=== PATIENT | female | born 1945 | race Caucasian/White ===

== ENCOUNTER 2017-01-01 18:19 | Emergency (ER) | payer MEDICARE, MEDICAID ==
[2017-01-01 18:52] VITALS: TEMP 97.5
--- NOTE | 2017-01-01 18:57 | CT ---
PROCEDURE: Head CLINICAL HISTORY: 71 years Female fell and hit posterior scalp in tub COMPARISON: None. TECHNIQUE: Contiguous axial images obtained through the brain without IV contrast. FINDINGS: The images are slightly suboptimal from motion. The ventricles and sulci are prominent consistent with atrophic changes. Microvascular ischemic changes. No mass lesions. No acute hemorrhage. Atherosclerotic calcifications. No fluid or significant mucosal thickening in the visualized paranasal sinuses. No depressed calvarial fractures. IMPRESSION: No acute intracranial abnormality is identified. Electronically signed by: Boo Cain MD 01/01/2017 6:56 PM [employer]
--- NOTE | 2017-01-01 19:14 | ED.PDOC ---
History of Present Illness - General Chief Complaint: Trauma Stated Complaint: fell against bathtub Time Seen by Provider: 01/01/17 18:23 Source: patient, RN notes reviewed, family Exam Limitations: no limitations Additional Information: Pt brought to ER by EMS. She reportedly fell from seated position. She was sitting on the edge of her tub and fell backwards hitting her posterior scalp. No reported LOC. Pt has baseline dementia. She is in no distress. - History of Present Illness Timing/Duration: 1/2 hour - prior to arrival Improving Factors: rest Worsening Factors: movement Associated Symptoms: headaches - mild Allergies/Adverse Reactions: Allergies Tetanus Toxoids Allergy (Severe, Verified 08/04/16 14:28) Anaphylaxis Hydromorphone [From Dilaudid] Allergy (Verified 08/04/16 14:28) Meperidine [From Demerol HCl] Allergy (Verified 08/04/16 14:28) Penicillins Allergy (Verified 08/04/16 14:28) Home Medications: Ambulatory Orders Amitriptyline HCl [Elavil] 25 mg PO BEDTIME 08/04/16 Cetirizine HCl 10 mg PO DAILY 08/04/16 Cholecalciferol [Vitamin D3] 5,000 unit PO DAILY 08/04/16 Escitalopram [Lexapro] 20 mg PO DAILY 08/04/16 Famotidine 20 mg PO BID 08/04/16 Gabapentin 300 mg PO TID 08/04/16 Levothyroxine Sodium 88 mcg PO DAILY 08/04/16 Linaclotide [Linzess] 290 mcg PO DAILY 08/04/16 Lisinopril 40 mg PO DAILY 08/04/16 Naproxen [Naprosyn] 500 mg PO BID 08/04/16 Ramelteon [Rozerem] 8 mg PO BEDTIME 08/04/16 Solifenacin Succinate [Vesicare] 10 mg PO DAILY 08/04/16 Tramadol HCl 50 mg PO BID 08/04/16 tiZANidine [Zanaflex] 4 mg PO TID PRN #30 tab 08/04/16 Review of Systems - Review of Systems Constitutional: States: no symptoms reported EENTM: States: no symptoms reported Respiratory: States: no symptoms reported Cardiology: States: no symptoms reported Gastrointestinal/Abdominal: States: no symptoms reported Genitourinary: States: no symptoms reported Musculoskeletal: States: no symptoms reported Skin: States: no symptoms reported Neurological: States: headache - mild Endocrine: States: no symptoms reported Hematologic/Lymphatic: States: no symptoms reported Unable to Obtain Due To: dementia - per report, but patient is conversive and able to cooperate with history and exam. Also, at bedside and reports patient is at her baseline. Past Medical History (General) - Patient Medical History Hx Seizures: No Hx Stroke: No Hx Dementia: Yes Hx Asthma: No Hx of COPD: Yes Hx Cardiac Disorders: No Hx Congestive Heart Failure: No Hx Pacemaker: No Hx Hypertension: Yes Hx Thyroid Disease: No Hx Diabetes: No Hx Gastroesophageal Reflux: Yes Hx Cancer: Yes - breast Hx of HIV: No Hx Hepatitis C: No Hx MRSA: No - Vaccination History Hx Tetanus, Diphtheria Vaccination: No Hx Influenza Vaccination: Yes Hx Pneumococcal Vaccination: Yes - Social History Hx Tobacco Use: Yes Hx Alcohol Use: No Hx Substance Use: No Hx Substance Use Treatment: No Hx Depression: No Hx Physical Abuse: No Hx Emotional Abuse: No - Female History Patient : No Family Medical History - Family History Mother Family History: Unknown Living Status: Hx Family Hypertension: Yes Hx Family;Other: dementia Physical Exam - Physical Exam General Appearance: Comfortable, No apparent distress Eye Exam: bilateral normal Ears, Nose, Throat: hearing grossly normal Neck: non-tender, full range of motion, supple Respiratory: no respiratory distress Cardiovascular/Chest: normal peripheral pulses, regular rate, rhythm Gastrointestinal/Abdominal: non tender, soft Extremity: normal range of motion, non-tender 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 Pt stable for discharge home with strict return precautions. Will recommend OTC Tylenol as needed for headache and have patient f/u if condition worsens. - EKG/XRAY/CT CT: Head non-contrast - no evidence of acute intracranial bleed CT Ordered: Yes CT Interpretation Call Back: Yes Departure - Departure Clinical Impression: Blunt head trauma Qualifiers: Encounter type: initial encounter Qualifier Code: (S09.8XXA) Other specified injuries of head, initial encounter Contusion of scalp Qualifiers: Encounter type: initial encounter Qualifier Code: (S00.03XA) Contusion of scalp , initial encounter Headache Qualifiers: Headache type: post-traumatic Headache chronicity pattern: acute headache Intractability: intractable Qualifier Code: (G44.311) Acute post-traumatic headache, intractable Time of Disposition: 19:45 Disposition: Discharge to Home or Self Care Departure Forms: ED Discharge - Pt. Copy, Patient Portal Self Enrollment Home Medications: Ambulatory Orders Amitriptyline HCl [Elavil] 25 mg PO BEDTIME 08/04/16 Cetirizine HCl 10 mg PO DAILY 08/04/16 Cholecalciferol [Vitamin D3] 5,000 unit PO DAILY 08/04/16 Escitalopram [Lexapro] 20 mg PO DAILY 08/04/16 Famotidine 20 mg PO BID 08/04/16 Gabapentin 300 mg PO TID 08/04/16 Levothyroxine Sodium 88 mcg PO DAILY 08/04/16 Linaclotide [Linzess] 290 mcg PO DAILY 08/04/16 Lisinopril 40 mg PO DAILY 08/04/16 Naproxen [Naprosyn] 500 mg PO BID 08/04/16 Ramelteon [Rozerem] 8 mg PO BEDTIME 08/04/16 Solifenacin Succinate [Vesicare] 10 mg PO DAILY 08/04/16 Tramadol HCl 50 mg PO BID 08/04/16 tiZANidine [Zanaflex] 4 mg PO TID PRN #30 tab 08/04/16 Additional Instructions: Ok to use over the counter Tylenol as needed for headache (follow label instructions). Return to ER if condition worsens.
[2017-01-01 19:53] VITALS: O2SAT 98
[2017-01-01 19:55] VITALS: BP 126/71
== END 2017-01-01 19:55 | disposition home or self-care (01) ==
LOC: ER 18:19
DX: S00.03XA Contusion of scalp, initial encounter (principal); S09.8XXA Other specified injuries of head, initial encounter; F03.90 Unspecified dementia, unspecified severity, without behavioral disturbance, psychotic disturbance, mood disturbance, and anxiety; G44.311 Acute post-traumatic headache, intractable; J44.9 Chronic obstructive pulmonary disease, unspecified; I10 Essential (primary) hypertension; Z87.891 Personal history of nicotine dependence; K21.9 Gastro-esophageal reflux disease without esophagitis; Z85.3 Personal history of malignant neoplasm of breast; Z88.7 Allergy status to serum and vaccine; Z88.0 Allergy status to penicillin; Z79.899 Other long term (current) drug therapy; Z88.6 Allergy status to analgesic agent; W18.2XXA Fall in (into) shower or empty bathtub, initial encounter; Y92.002 Bathroom of unspecified non-institutional (private) residence as the place of occurrence of the external cause

== ENCOUNTER → 2017-03-30 | Outpatient (CLI) | payer MEDICARE, MEDICAID ==
--- NOTE | 2017-04-01 10:58 | RAD ---
EXAM DESCRIPTION: Chest,2 Views CLINICAL HISTORY: 71 years Female, EXACERBATION OF ASTHMA IMPRESSION: 2 views of the chest reveal clear lungs no pleural effusion or pneumothorax. Heart size is unremarkable. Electronically signed by: Juliocesar Encarnacion MD 04/01/2017 10:58 AM CDT
== END | disposition home or self-care (01) ==
LOC: YCFC.O 13:48
PROVIDERS: ATTEND Nurse Practitioner Family
DX: J45.901 Unspecified asthma with (acute) exacerbation (principal)

== ENCOUNTER → 2017-06-14 | Outpatient (CLI) | payer MEDICARE, MEDICAID ==
--- NOTE | 2017-06-15 15:54 | RAD ---
EXAM DESCRIPTION: Chest,2 Views CLINICAL HISTORY: EXACERBATION OF ASTHMA COMPARISON: March 30, 2017 TECHNIQUE: PA/lateral FINDINGS: The lungs are normal in volume without hyperexpansion with moderate kyphosis and degenerative changes noted in the dorsal spine with cardiac size upper limits of normal. Very little change from previous study is noted with no dense consolidation or pleural effusion or severe atelectasis noted. The aorta is moderately tortuous. IMPRESSION: No acute cardiopulmonary changes noted. Electronically signed by: Wagner Boykin MD 06/15/2017 3:52 PM CDT
== END ==
LOC: YCFC.O 16:40
PROVIDERS: ATTEND Nurse Practitioner Family
DX: J45.901 Unspecified asthma with (acute) exacerbation (principal)

== ENCOUNTER → 2017-08-10 | Outpatient (CLI) | payer MEDICARE, MEDICAID ==
--- NOTE | 2017-08-12 10:36 | MAM ---
EXAM DESCRIPTION: 3D Screening right : Digital Mammography. CLINICAL HISTORY: 71 years Female SCREENING . Breast cancer 2006 with mastectomy left. Mother with breast cancer. Postmenopausal. Right breast biopsy.. COMPARISON: Right breast 2-D digital mammography 08/09/2016 and 07/23/2015.. Report from prior examination also reviewed. TECHNIQUE: Right CC and MLO projection full-field images, 3-D tomosynthesis digital mammographic technique. Also right synthesized CC/ MLO full-field images. CAD not utilized. FINDINGS: The breast parenchymal density pattern is: Scattered areas of fibroglandular density. No skin thickening or nipple retraction small solitary microcalcifications. No intramammary lymph nodes. focal asymmetry , and no suspicious microcalcifications bilaterally. Stable mammograms compared to prior studies, taking into account differences in mammographic technique. IMPRESSION: BI-RADS CATEGORY: 2 - BENIGN FINDINGS. FOLLOW UP: Routine digital bilateral screening, one year interval from July 2017. Written communication explaining the IMPRESSION and follow-up, will be mailed to the patient and referring health care provider. According to the [employer], yearly mammograms are recommended starting at age 40 and continuing as long as a woman is in good health. Any breast change noted on a breast self-exam should be reported promptly to the patient's healthcare provider. Breast MRI is recommended for women with an approximately 20-25% or greater lifetime risk of breast cancer, including women with a strong family history of breast or ovarian cancer and women who have been treated for Hodgkin's disease. A negative mammographic report should not delay tissue diagnosis in patients with significant clinical history or physical findings. Extremely dense breast tissue limits the sensitivity of digital mammography. Electronically signed by: Markos Lopez MD 08/12/2017 10:35 AM CDT
== END ==
LOC: MAMMO 15:08
PROVIDERS: ATTEND Nurse Practitioner Family
DX: Z12.31 Encounter for screening mammogram for malignant neoplasm of breast (principal)
CPT/HCPCS: 77063; G0202

== ENCOUNTER 2018-02-08 20:20 | Emergency (ER) | payer MEDICARE, MEDICAID ==
[2018-02-08] MEDS: NITROGLYCERIN 0.4 MG 25 EA TAB SL ONE (20:25)
--- NOTE | 2018-02-08 20:52 | ED.PDOC ---
History of Present Illness - General Chief Complaint: Chest Pain/IA Stated Complaint: chest pain Source: patient, family - History of Present Illness Initial Comments: THE PATIENT IS A POOR HISTORIAN; THE DAUGHTER AT THE BEDSIDE DOES MOST OF THE TALKING. EVIDENTLY SHE STARTED WITH LEFT SIDED CHEST PAIN YESTERDAY AFTERNOON, A SHARP PAIN, INTERMITTENT THAT RADIATES TO THE LEFT SHOULDER. AT TIMES THE PAIN IS ASSOCIATED WITH SOB. TODAY SHE WAS AT [employer] AND SHE STARTED COMPLAININGS OF THE LEFT SIDED PAIN AGAIN 05/02 ASSOCIATED WITH SOB AND RADIATION TO THE LEFT SHOULDER. SHE RECENTLY RECEIVED SHOTS TO BOTH SHOULDER FOR DJD. SHE HAS A HX OF HTN AND COPD. SHE IS AN EX SMOKER AND HAS NO HX OF CAD. THE PATIENT DISCLOSED THAT IN 2011 SHE UNDERWENT A HEART CATHETERIZATION BY DR. BRUSH AND THERE WAS NO CAD. Timing/Duration: 24 hours, getting worse, intermittent Severity/Quality: severe, sharp Location: substernal Chest Pain Radiation: arms, shoulders Activities at Onset: none Prior Chest Pain/Cardiac Workup: no prior chest pain, no prior cardiac workup Improving Factors: nothing Worsening Factors: nothing Nitro Today/Relief: no nitro taken today - BUT [facility] GAVE HER A PILL OF MORPHINE SULPHATE AND ALEVIATED HER PAIN. Associated Symptoms: diaphoresis, shortness of breath Allergies/Adverse Reactions: Allergies Tetanus Toxoids Allergy (Severe, Verified 08/04/16 14:28) Anaphylaxis Aspirin Allergy (Verified 02/08/18 20:33) Hydromorphone [From Dilaudid] Allergy (Verified 08/04/16 14:28) Meperidine [From Demerol HCl] Allergy (Verified 08/04/16 14:28) Penicillins Allergy (Verified 08/04/16 14:28) Home Medications: Ambulatory Orders Cetirizine HCl 10 mg PO DAILY 08/04/16 Cholecalciferol [Vitamin D3] 5,000 unit PO DAILY 08/04/16 Escitalopram [Lexapro] 20 mg PO DAILY 08/04/16 Famotidine 20 mg PO BID 08/04/16 Gabapentin 300 mg PO TID 08/04/16 Levothyroxine Sodium 88 mcg PO DAILY 08/04/16 Linaclotide [Linzess] 290 mcg PO DUSTIN-OTH-DAY 08/04/16 Lisinopril 40 mg PO DAILY 08/04/16 Naproxen [Naprosyn] 500 mg PO BID 08/04/16 Tramadol HCl 50 mg PO BID 08/04/16 ALPRAZolam [Xanax] 0.5 mg PO Q8HRS PRN MDD 1mg 02/08/18 Albuterol Inhaler [Ventolin Hfa Inhaler] 1 puff INH PRN 02/08/18 Budesonide-Formoterol Fumarate [Symbicort] 1 aer IN BID 02/08/18 Cyclobenzaprine HCl [Flexeril] 10 mg PO BEDTIME 02/08/18 Fluticasone Propionate (Nasal) [Flonase] 50 mcg NA DAILY 02/08/18 Guaifenesin [Mucinex] 600 mg PO DAILY 02/08/18 HYDROcodone 7.5MG/APAP 325MG [[place] 7.5/325] 1 tab PO DAILY 02/08/18 Morphine 20Mg/ml Ud [Roxanol] 20 mg PO PRN 02/08/18 Trazodone HCl 100 mg PO BEDTIME 02/08/18 Review of Systems - Review of Systems Constitutional: States: no symptoms reported EENTM: States: no symptoms reported Respiratory: States: short of breath Cardiology: States: see HPI, chest pain Gastrointestinal/Abdominal: States: nausea Genitourinary: States: no symptoms reported Musculoskeletal: States: other - BILATERAL SHOULDER PAIN, EVEN BEFORE THE PAIN STARTED. Skin: States: no symptoms reported Neurological: States: no symptoms reported Endocrine: States: no symptoms reported Hematologic/Lymphatic: States: no symptoms reported All other Systems: Reviewed and Negative, No Change from Baseline Past Medical History (General) - Patient Medical History Hx Seizures: No Hx Stroke: No Hx Dementia: Yes Hx Asthma: No Hx of COPD: Yes Hx Cardiac Disorders: Yes - heart murmur Hx Congestive Heart Failure: No Hx Pacemaker: No Hx Hypertension: Yes Hx Thyroid Disease: Yes Hx Diabetes: No Hx Gastroesophageal Reflux: Yes Hx Cancer: Yes - Left breast Hx of HIV: No Hx Hepatitis C: No Hx MRSA: No Surgical History: cancer surgery, other - Vaccination History Hx Tetanus, Diphtheria Vaccination: No Hx Influenza Vaccination: Yes Hx Pneumococcal Vaccination: Yes - Social History Hx Tobacco Use: Yes Hx Alcohol Use: No Hx Substance Use: No Hx Substance Use Treatment: No Hx Depression: No Hx Physical Abuse: No Hx Emotional Abuse: No - Female History Patient : No Family Medical History - Family History Mother Family History: Unknown Living Status: Hx Family Hypertension: Yes Hx Family;Other: dementia Physical Exam - Physical Exam General Appearance: Alert, Anxious, Well Developed, Well Hydrated Eyes, Ears, Nose, Throat Exam: PERRL/EOMI, normal ENT inspection, TMs normal, pharynx normal Neck: non-tender, full range of motion, supple, normal inspection Respiratory: chest non-tender, lungs clear, normal breath sounds, no respiratory distress, no accessory muscle use Cardiovascular/Chest: normal peripheral pulses, regular rate, rhythm, no edema, no gallop, no JVD, systolic murmur - GRADE 4/6 ON THE LEFT STERNAL BORDER- RADIATED TO THE NECK-SUGGESTS AORTIC STENOSIS Peripheral Pulses: radial,right: 2+, radial,left: 2+ Gastrointestinal/Abdominal: normal bowel sounds, non tender, soft, no organomegaly, no pulsatile mass Rectal Exam: deferred Extremity: normal range of motion 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 I HAVE CALLED DR. Jesus MARIE AND DR. Bj MARIE AND WILL BE TRANSFERING THE PATIENT FOR CDU OBSERVATION AND CARDIOLOGY CONSULT IN THE AM. - EKG/XRAY/CT EKG: Sinus Comments: HR OF 71, OK 178, QRS 82, QTC 397, AXES 15-SINUS RHYTHM, NO INJURY PATTERN Departure - Departure Clinical Impression: Chest pain Time of Disposition: 22:38 Disposition: Transfer to Hospital Condition: Fair Referrals: Rita Avalos NP [Primary Care Provider] - 1-2 Weeks Home Medications: Ambulatory Orders Cetirizine HCl 10 mg PO DAILY 08/04/16 Cholecalciferol [Vitamin D3] 5,000 unit PO DAILY 08/04/16 Escitalopram [Lexapro] 20 mg PO DAILY 08/04/16 Famotidine 20 mg PO BID 08/04/16 Gabapentin 300 mg PO TID 08/04/16 Levothyroxine Sodium 88 mcg PO DAILY 08/04/16 Linaclotide [Linzess] 290 mcg PO DUSTIN-OTH-DAY 08/04/16 Lisinopril 40 mg PO DAILY 08/04/16 Naproxen [Naprosyn] 500 mg PO BID 08/04/16 Tramadol HCl 50 mg PO BID 08/04/16 ALPRAZolam [Xanax] 0.5 mg PO Q8HRS PRN MDD 1mg 02/08/18 Albuterol Inhaler [Ventolin Hfa Inhaler] 1 puff INH PRN 02/08/18 Budesonide-Formoterol Fumarate [Symbicort] 1 aer IN BID 02/08/18 Cyclobenzaprine HCl [Flexeril] 10 mg PO BEDTIME 02/08/18 Fluticasone Propionate (Nasal) [Flonase] 50 mcg NA DAILY 02/08/18 Guaifenesin [Mucinex] 600 mg PO DAILY 02/08/18 HYDROcodone 7.5MG/APAP 325MG [[place] 7.5/325] 1 tab PO DAILY 02/08/18 Morphine 20Mg/ml Ud [Roxanol] 20 mg PO PRN 02/08/18 Trazodone HCl 100 mg PO BEDTIME 02/08/18 Transfer to Outside Facility - Transfer Information Accepting Provider:: DR. TWIN MARIE Accepting Facility: [facility] Reason for Transfer: [facility]U OBSERVATION AND CARDIOLOGY CONSULTATION
--- NOTE | 2018-02-08 21:00 | RAD ---
EXAM DESCRIPTION: Chest,1 View CLINICAL HISTORY:72 years Female, chest pain Comparison: June 14, 2017 FINDINGS: No focal lung consolidation. No pleural effusion. No pneumothorax. Cardiac and mediastinal silhouette is unremarkable. No acute osseous abnormality. Soft tissues are unremarkable. IMPRESSION: No acute findings. No focal lung consolidation. Electronically signed by: Toni Lucero MD 02/08/2018 8:58 PM CDT
[2018-02-08] MEDS: SODIUM CHLORIDE 0.9% (FLUSH) 10 ML SYG IV PRN (22:40)
[2018-02-08 22:52] VITALS: BP 133/71; TEMP 97.7
[2018-02-08 23:17] VITALS: O2SAT 97
== END 2018-02-08 23:16 | disposition short-term general hospital (02) ==
LOC: ER 20:20
DX: R07.9 Chest pain, unspecified (principal); J44.9 Chronic obstructive pulmonary disease, unspecified; M25.512 Pain in left shoulder; M25.511 Pain in right shoulder; R01.1 Cardiac murmur, unspecified; F03.90 Unspecified dementia, unspecified severity, without behavioral disturbance, psychotic disturbance, mood disturbance, and anxiety; I10 Essential (primary) hypertension; E07.9 Disorder of thyroid, unspecified; K21.9 Gastro-esophageal reflux disease without esophagitis; Z85.3 Personal history of malignant neoplasm of breast; Z87.891 Personal history of nicotine dependence; Z79.899 Other long term (current) drug therapy

== ENCOUNTER 2019-01-21 12:57 | Emergency (ER) | payer MEDICARE, MEDICAID ==
[2019-01-21 13:17] VITALS: TEMP 97.9
--- NOTE | 2019-01-21 14:02 | CT ---
PROCEDURE: CT Cervical Spine Without Intravenous Contrast CLINICAL INDICATION: The patient is 73 years old and is Female; fall probable concussion TECHNIQUE: Axial computed tomography images of the cervical spine without intravenous contrast. Sagittal and coronal reformatted images were created and reviewed. This exam was performed according to our departmental dose-optimization program, which includes automated exposure control, adjustment of the mA and/or kV according to patient size and/or use of iterative reconstruction technique. Sagittal and coronal reconstructions were also performed. COMPARISON: No relevant prior studies available. FINDINGS: VERTEBRAE: No fracture or malalignment identified in the cervical spine. There is multilevel advanced cervical spondylosis, endplate lipping and discogenic degenerative change. The lateral masses of C1 are normal with respect to C2. The dens is intact. DISCS/SPINAL CANAL/NEURAL FORAMINA: Cervical straightening is present, which may be due to degenerative changes, cervical collar placement, positioning, muscular spasm or ligamentous injury. There is degenerative zygoapophyseal and uncovertebral hypertrophy at multiple levels. No spinal canal stenosis. OTHER BONES/JOINTS: The visualized skull base is without fracture. SOFT TISSUES: No prevertebral soft tissue hematoma identified. MASTOID AIR CELLS: The inferior mastoid air cells are clear. LUNG APICES: The lung apices are clear. IMPRESSION: No fracture or malalignment identified in the cervical spine. Electronically signed by: Richard Quach MD 01/21/2019 1:59 PM CDT
--- NOTE | 2019-01-21 14:07 | CT ---
PROCEDURE: CT Head Without Intravenous Contrast CLINICAL INDICATION: The patient is 73 years old and is Female; fall probable concussion TECHNIQUE: Axial computed tomography images of the head/brain without intravenous contrast. Sagittal and coronal reformatted images were created and reviewed. This CT exam was performed using one or more of the following dose reduction techniques: automated exposure control, adjustment of the mA and/or kV according to patient size, and/or use of iterative reconstruction technique. COMPARISON: Prior brain CT from 01/02/2017 FINDINGS: BRAIN: There are mild stable confluent areas of hypodensity in the periventricular white matter, extending into the centrum semiovale and lopez radiata bilaterally, which are felt to represent the sequela of small vessel ischemic disease (microangiopathy). Early infarcts within the first 12 hours may not be visible on noncontrast CT. The cordova/white matter differentiation is intact. NO intra-or extra-axial fluid collections are seen. There is stable dilation of the temporal horn of the LEFT lateral ventricle which may be ex vacuo dilatation. There is asymmetric prominence of the LEFT sylvian fissure. Prior encephalomalacia may be accountable. No hemorrhage. MIDLINE SHIFT: There is NO midline shift. VENTRICLES: There is mild global atrophy with prominence of the ventricles, sulci and basilar cisterns. BONES/JOINTS: Unremarkable. No acute fracture. SOFT TISSUES: There is a LEFT anterior high frontal scalp contusion. VASCULATURE: Intracranial vascular calcifications are noted. SINUSES: The visualized paranasal sinuses are clear. MASTOID AIR CELLS: Unremarkable as visualized. No mastoid effusion. ORBITS: There has been bilateral cataract surgery. IMPRESSION: 1. No acute intracranial abnormality is identified. No change from two years earlier. 2. There is a LEFT anterior high frontal scalp contusion. Electronically signed by: Richard Quach MD 01/21/2019 2:04 PM CDT
--- NOTE | 2019-01-21 14:08 | RAD ---
PROCEDURE: XR Left Knee, 1 or 2 views CLINICAL INDICATION: The patient is 73 years old and is Female; pain from fall TECHNIQUE: Frontal and/or lateral views of the left knee. COMPARISON: No relevant prior studies available. FINDINGS: BONES/JOINTS: There is a LEFT total knee arthroplasty in place. There is no knee effusion. There is no fracture or dislocation identified in the LEFT knee. SOFT TISSUES: No radiopaque foreign body. No significant soft tissue swelling noted. IMPRESSION: No plain film evidence of complication status post LEFT total knee arthroplasty. Electronically signed by: Richard Quach MD 01/21/2019 2:05 PM CDT
[2019-01-21 14:09] VITALS: BP 159/73; O2SAT 92
--- NOTE | 2019-01-21 14:09 | RAD ---
PROCEDURE: XR Left Hip With Pelvis When Performed, 2 or 3 Views CLINICAL INDICATION: The patient is 73 years old and is Female; left hip pain TECHNIQUE: Two or three views of the left hip, with pelvis when performed. COMPARISON: Prior study from 08/04/2016. FINDINGS: BONES/JOINTS: There is a LEFT total knee arthroplasty with bipolar components. No fracture or dislocation identified in LEFT hip. SOFT TISSUES: Unremarkable. No radiopaque foreign body. No significant soft tissue swelling noted. IMPRESSION: No plain film evidence of complication. No change. Electronically signed by: Richard Quach MD 01/21/2019 2:06 PM CDT
--- NOTE | 2019-01-21 14:16 | ED.PDOC ---
History of Present Illness - General Chief Complaint: Trauma Stated Complaint: Fell while walking up the stairs, forehead hematom Time Seen by Provider: 01/21/19 13:08 Source: patient Exam Limitations: no limitations - History of Present Illness Initial Comments: the patient is a 73-year-old female with dementia presenting to emergency room secondary to a fall while going up the stairs to her house. She fell forward and hit her left forehead on the banister. No definite loss of consciousness but she did show some increased confusion for a little while after. It is difficult to discern what his altered mental status with her due to the dementia. Daughter is here and reports that at this time at least she is acting normal for her. She does have a large frontal scalp hematoma approximately 1-1/2 inch in diameter. She has an abrasion to the crown of her scalp that is hemostatic at this point. She reports some mild left knee and left hip pain but movement on these is essentially normal. No new lacerations there or new bruising there at this time. Very mild effusion and discomfort. Difficult to elicit further secondary to dementia. Timing/Duration: momentarily Severity: mild Improving Factors: nothing Worsening Factors: nothing Associated Symptoms: denies symptoms Allergies/Adverse Reactions: Allergies Tetanus Toxoids Allergy (Severe, Verified 08/04/16 14:28) Anaphylaxis Aspirin Allergy (Verified 02/08/18 20:33) Hydromorphone [From Dilaudid] Allergy (Verified 08/04/16 14:28) Meperidine [From Demerol HCl] Allergy (Verified 08/04/16 14:28) Penicillins Allergy (Verified 08/04/16 14:28) Home Medications: Ambulatory Orders Cetirizine HCl 10 mg PO DAILY 08/04/16 Cholecalciferol [Vitamin D3] 5,000 unit PO DAILY 08/04/16 Escitalopram [Lexapro] 20 mg PO DAILY 08/04/16 Famotidine 20 mg PO BID 08/04/16 Gabapentin 300 mg PO TID 08/04/16 Levothyroxine Sodium 88 mcg PO DAILY 08/04/16 Linaclotide [Linzess] 290 mcg PO DUSTIN-OTH-DAY 08/04/16 Lisinopril 40 mg PO DAILY 08/04/16 Naproxen [Naprosyn] 500 mg PO BID 08/04/16 Tramadol HCl 50 mg PO BID 08/04/16 ALPRAZolam [Xanax] 0.5 mg PO Q8HRS PRN MDD 1mg 02/08/18 Albuterol Inhaler [Ventolin Hfa Inhaler] 1 puff INH PRN 02/08/18 Budesonide-Formoterol Fumarate [Symbicort] 1 aer IN BID 02/08/18 Cyclobenzaprine HCl [Flexeril] 10 mg PO BEDTIME 02/08/18 Fluticasone Propionate (Nasal) [Flonase] 50 mcg NA DAILY 02/08/18 Guaifenesin [Mucinex] 600 mg PO DAILY 02/08/18 HYDROcodone 7.5MG/APAP 325MG [[place] 7.5/325] 1 tab PO DAILY 02/08/18 Morphine 20Mg/ml Ud [Roxanol] 20 mg PO PRN 02/08/18 Trazodone HCl [Trazodone Hydrochloride] 100 mg PO BEDTIME 02/08/18 Furosemide [Lasix] 20 mg PO DAILY 01/21/19 Ketorolac Tromethamine [Toradol Tabs] 10 mg PO PRN 01/21/19 Losartan Potassium 50 mg PO DAILY 01/21/19 Review of Systems - Review of Systems Constitutional: States: no symptoms reported EENTM: States: no symptoms reported Respiratory: States: no symptoms reported Cardiology: States: no symptoms reported Gastrointestinal/Abdominal: States: no symptoms reported Genitourinary: States: no symptoms reported Musculoskeletal: States: see HPI Skin: States: no symptoms reported Neurological: States: see HPI Endocrine: States: no symptoms reported All other Systems: No Change from Baseline Past Medical History (General) - Patient Medical History Hx Seizures: No Hx Stroke: No Hx Dementia: Yes Hx Asthma: No Hx of COPD: Yes Hx Cardiac Disorders: Yes - heart murmur Hx Congestive Heart Failure: No Hx Pacemaker: No Hx Hypertension: Yes Hx Thyroid Disease: Yes Hx Diabetes: No Hx Gastroesophageal Reflux: Yes Hx Cancer: Yes - Left breast Hx of HIV: No Hx Hepatitis C: No Hx MRSA: No Surgical History: other - Vaccination History Hx Tetanus, Diphtheria Vaccination: No Hx Influenza Vaccination: Yes - 2018 Hx Pneumococcal Vaccination: No - Social History Hx Tobacco Use: Yes - Quit around 1994 Hx Alcohol Use: No Hx Substance Use: No Hx Substance Use Treatment: No Hx Depression: No Hx Physical Abuse: No Hx Emotional Abuse: No - Female History Patient : No Family Medical History - Family History Mother Family History: Unknown Living Status: Hx Family Hypertension: Yes Hx Family;Other: dementia Physical Exam - Physical Exam General Appearance: Comfortable, No apparent distress, Other - initially a little bit drowsy. Eye Exam: bilateral normal - pupils are 2 mm and minimally reactive but extraocular movements are intact and the patient is obviously seeing well. Ears, Nose, Throat: hearing grossly normal, normal ENT inspection, normal pharynx Neck: full range of motion, other - mild diffuse discomfort but no real point tenderness and no step-off. Respiratory: normal breath sounds, no respiratory distress, no accessory muscle use, wheezing - very mild scattered wheezes Cardiovascular/Chest: normal peripheral pulses, no edema, other - regular rate Peripheral Pulses: radial,right: 2+, radial,left: 2+, dorsalis pedis,right: 2+, dorsalis pedis,left: 2+ Gastrointestinal/Abdominal: non tender, soft Rectal Exam: deferred Back Exam: no CVA tenderness, no vertebral tenderness Extremity: normal range of motion, no pedal edema, no calf tenderness, normal capillary refill, other - mild tenderness over the left knee but good range of motion. Mild left hip discomfort with movement but full active and passive range of motion and strength is preserved. 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 Skin Exam: normal color - left frontal scalp hematoma. Comments: Vital Signs - 24 hr 01/21/19 01/21/19 13:00 14:08 Temperature 97.9 F Pulse Rate [ 70 61 Left Radial] Respiratory 20 20 Rate Blood Pressure 153/74 159/73 [Right Arm] O2 Sat by Pulse 87 L 92 L Oximetry Progress - Results/Orders Results/Orders: the patient is a 73-year-old female presenting after a fall while going up the steps to her home. The patient has sustained a left frontal scalp hematoma. She also likely did sustain a mild concussion. CT scan of the head and cervical spine showed no acute pathology. X-ray of the left hip and knee show no acute pathology. The patient will likely be sore over the next few days. Concussion warnings were given. She can follow back up with her primary care doctor later this coming week. her oxygen levels are borderline while she is awake. she can be followed with home health. She does have oxygen to use at night. ER warnings were given for any worsening. Departure - Departure Clinical Impression: Concussion Qualifiers: Encounter type: initial encounter Loss of consciousness presence/duration: without LOC Qualified Code(s): S06.0X0A - Concussion without loss of con sciousness, initial encounter Fall at home Qualifiers: Encounter type: initial encounter Qualified Code(s): W19.XXXA - Unspecified fall, initial encounter; Y92.009 - Unspecified place in unspecified non- institutional (private) residence as the place of occurrence of the external cause Strain of knee and leg, left Qualifiers: Encounter type: initial encounter Qualified Code(s): S86.912A - Strain of unspecified muscle(s) and tendon(s) at lower leg level, left leg, initial encounter Disposition: Discharge to Home or Self Care Condition: Fair Departure Forms: ED Discharge - Pt. Copy, Patient Portal Self Enrollment Instructions: DI for Trauma, Concussion, Adult (DC), Chronic Knee Pain Diet: regular diet Activity: increase activity as tolerated Referrals: Rita Avalos NP [Primary Care Provider] - 1-5 Days Home Medications: Ambulatory Orders Cetirizine HCl 10 mg PO DAILY 08/04/16 Cholecalciferol [Vitamin D3] 5,000 unit PO DAILY 08/04/16 Escitalopram [Lexapro] 20 mg PO DAILY 08/04/16 Famotidine 20 mg PO BID 08/04/16 Gabapentin 300 mg PO TID 08/04/16 Levothyroxine Sodium 88 mcg PO DAILY 08/04/16 Linaclotide [Linzess] 290 mcg PO DUSTIN-OTH-DAY 08/04/16 Lisinopril 40 mg PO DAILY 08/04/16 Naproxen [Naprosyn] 500 mg PO BID 08/04/16 Tramadol HCl 50 mg PO BID 08/04/16 ALPRAZolam [Xanax] 0.5 mg PO Q8HRS PRN MDD 1mg 02/08/18 Albuterol Inhaler [Ventolin Hfa Inhaler] 1 puff INH PRN 02/08/18 Budesonide-Formoterol Fumarate [Symbicort] 1 aer IN BID 02/08/18 Cyclobenzaprine HCl [Flexeril] 10 mg PO BEDTIME 02/08/18 Fluticasone Propionate (Nasal) [Flonase] 50 mcg NA DAILY 02/08/18 Guaifenesin [Mucinex] 600 mg PO DAILY 02/08/18 HYDROcodone 7.5MG/APAP 325MG [[place] 7.5/325] 1 tab PO DAILY 02/08/18 Morphine 20Mg/ml Ud [Roxanol] 20 mg PO PRN 02/08/18 Trazodone HCl [Trazodone Hydrochloride] 100 mg PO BEDTIME 02/08/18 Furosemide [Lasix] 20 mg PO DAILY 01/21/19 Ketorolac Tromethamine [Toradol Tabs] 10 mg PO PRN 01/21/19 Losartan Potassium 50 mg PO DAILY 01/21/19 Additional Instructions: the patient is a 73-year-old female presenting after a fall while going up the steps to her home. The patient has sustained a left frontal scalp hematoma. She also likely did sustain a mild concussion. CT scan of the head and cervical spine showed no acute pathology. X-ray of the left hip and knee show no acute pathology. The patient will likely be sore over the next few days. Concussion warnings were given. She can follow back up with her primary care doctor later this coming week. her oxygen levels are borderline while she is awake. she can be followed with home health. She does have oxygen to use at night. ER warnings were given for any worsening.
== END 2019-01-21 14:35 | disposition home or self-care (01) ==
LOC: ER 12:57
DX: S06.0X0A Concussion without loss of consciousness, initial encounter (principal); S86.912A Strain of unspecified muscle(s) and tendon(s) at lower leg level, left leg, initial encounter; S00.83XA Contusion of other part of head, initial encounter; M47.812 Spondylosis without myelopathy or radiculopathy, cervical region; F03.90 Unspecified dementia, unspecified severity, without behavioral disturbance, psychotic disturbance, mood disturbance, and anxiety; J44.9 Chronic obstructive pulmonary disease, unspecified; R01.1 Cardiac murmur, unspecified; I10 Essential (primary) hypertension; E07.9 Disorder of thyroid, unspecified; K21.9 Gastro-esophageal reflux disease without esophagitis; Z85.3 Personal history of malignant neoplasm of breast; Z99.81 Dependence on supplemental oxygen; Z87.891 Personal history of nicotine dependence; Z79.899 Other long term (current) drug therapy; Z88.0 Allergy status to penicillin; Z88.7 Allergy status to serum and vaccine; Z88.6 Allergy status to analgesic agent; Z88.5 Allergy status to narcotic agent; W10.9XXA Fall (on) (from) unspecified stairs and steps, initial encounter; Y92.009 Unspecified place in unspecified non-institutional (private) residence as the place of occurrence of the external cause

== ENCOUNTER → 2019-02-01 | Outpatient (CLI) | payer MEDICARE, MEDICAID ==
--- NOTE | 2019-02-01 17:53 | US ---
EXAM DESCRIPTION: Venous,Lower Extremity LT: ULTRASOUND. CLINICAL HISTORY: LOCALIZED SWELLING, MASS AND LUMP UNSPECIFIED LOWER LIMB LEFT COMPARISON: None Available. TECHNIQUE: Doll-scale and doppler sonographic evaluation of the deep venous system of the left lower extremity. FINDINGS: Doppler evaluation shows normal color flow and normal phasicity and augmentation of the left common femoral vein, femoral vein, popliteal vein, greater saphenous vein, peroneal, and posterior tibial vein. The left lower extremity deep veins were completely compressible; normal occlusion with transducer pressure. Doll-scale survey showed no echogenic thrombus within these veins. IMPRESSION: 1. Duplex ultrasound evaluation of the left lower extremity deep venous system showing no evidence of thrombosis. Electronically signed by: Markos Lopez MD 02/01/2019 5:50 PM CDT
== END ==
LOC: US 15:00
PROVIDERS: ATTEND Nurse Practitioner Family
DX: I82.402 Acute embolism and thrombosis of unspecified deep veins of left lower extremity (principal); R22.40 Localized swelling, mass and lump, unspecified lower limb

== ENCOUNTER → 2019-09-21 | Outpatient (CLI) | payer MEDICARE, MEDICAID | LOC: BFHH 13:45 | PROVIDERS: ATTEND General Practice | DX: R30.0 Dysuria (principal) ==

== ENCOUNTER → 2019-10-18 | Outpatient (CLI) | payer MEDICARE, MEDICAID | LOC: BFHH 13:18 | PROVIDERS: ATTEND General Practice | DX: N39.0 Urinary tract infection, site not specified (principal) ==

== ENCOUNTER → 2020-01-18 | Outpatient (CLI) | payer MEDICARE, MEDICAID | LOC: BFHH 12:35 | PROVIDERS: ATTEND General Practice | DX: N39.0 Urinary tract infection, site not specified (principal) ==